=== PATIENT | male | born 1950 | race Caucasian/White ===

== ENCOUNTER → 2017-12-08 09:26 | Outpatient (CLI) | payer MEDICARE, OTHER, SELFPAY ==
[2017-12-08 13:02] LABS: AST(SGOT) 21 U/L (15-37); Alanine Aminotransfer ALT/SGPT 39 U/L (16-61); Albumin, Serum 3.7 g/dL (3.2-5.0); Alkaline Phosphatase 55 U/L (45-117); Bilirubin, Direct 0.12 mg/dL (0.00-0.30); Cholesterol 126 mg/dL (200); Globulin 3.6 g/dL (2.2-4.2); High Density Lipoprotein 33 mg/dL; Protein, Total 7.3 g/dL (6.4-8.2); Triglycerides 125 mg/dL; Very Low Density Lipoprotein 25 mg/dL (5-40)
== END ==
PROVIDERS: Family Provider Family Medicine; PCP Family Medicine; Visit Provider Physician Assistant Medical
DX: E78.5 Hyperlipidemia, unspecified (principal); Z79.899 Other long term (current) drug therapy
CPT/HCPCS: 36415; 80061; 80076

== ENCOUNTER → 2018-06-17 08:28 | Outpatient (CLI) | payer MEDICARE, OTHER, SELFPAY ==
[2018-05-26 13:26] VITALS: BMI 30.4
[2018-06-17 10:33] LABS: AST(SGOT) 26 U/L (15-37); Alanine Aminotransfer ALT/SGPT 52 U/L (16-61); Albumin, Serum 3.9 g/dL (3.2-5.0); Alkaline Phosphatase 64 U/L (45-117); Bilirubin, Direct 0.15 mg/dL (0.00-0.30); Cholesterol 160 mg/dL (200); Globulin 3.7 g/dL (2.2-4.2); High Density Lipoprotein 36 mg/dL; Protein, Total 7.6 g/dL (6.4-8.2); Triglycerides 173 mg/dL; Very Low Density Lipoprotein 35 mg/dL (5-40)
== END ==
PROVIDERS: Physician Assistant Medical; Family Provider Family Medicine; PCP Family Medicine; Referring Provider Internal Medicine Cardiovascular Disease; Visit Provider Internal Medicine Cardiovascular Disease
DX: E78.5 Hyperlipidemia, unspecified (principal)
CPT/HCPCS: 36415; 80061; 80076

== ENCOUNTER → 2019-04-25 09:12 | Outpatient (CLI) | payer MEDICARE, OTHER, SELFPAY ==
[2019-04-08 13:25] VITALS: BMI 31.0
[2019-04-25 10:52] LABS: AST(SGOT) 22 U/L (15-37); Alanine Aminotransfer ALT/SGPT 41 U/L (16-61); Albumin, Serum 3.9 g/dL (3.2-5.0); Alkaline Phosphatase 56 U/L (45-117); Bilirubin, Direct 0.15 mg/dL (0.00-0.30); Cholesterol 154 mg/dL (200); Globulin 3.5 g/dL (2.2-4.2); High Density Lipoprotein 38 mg/dL; Protein, Total 7.4 g/dL (6.4-8.2); Triglycerides 178 mg/dL; Very Low Density Lipoprotein 36 mg/dL (5-40)
== END ==
PROVIDERS: Family Provider Family Medicine; PCP Family Medicine; Referring Provider Internal Medicine Cardiovascular Disease; Visit Provider Internal Medicine Cardiovascular Disease
DX: E78.00 Pure hypercholesterolemia, unspecified (principal); I25.10 Atherosclerotic heart disease of native coronary artery without angina pectoris; I10 Essential (primary) hypertension; E78.5 Hyperlipidemia, unspecified; I25.2 Old myocardial infarction; Z95.5 Presence of coronary angioplasty implant and graft; Z95.1 Presence of aortocoronary bypass graft
CPT/HCPCS: 36415; 80061; 80076

== ENCOUNTER → 2019-12-09 15:04 | Outpatient (CLI) | payer MEDICARE, OTHER, SELFPAY ==
[2019-04-08 13:25] VITALS: BMI 31.0
[2019-12-09 18:21] LABS: BUN 17 mg/dL (7-18); Creatinine, Serum 1.08 mg/dL (0.70-1.30); Glucose 95 mg/dL (74-106)
[2019-12-09 18:22] LABS: Anion Gap 4 (5-15); BUN/Creat Ratio 15.7 RATIO (10-20); Calcium,Total 9.1 mg/dL (8.5-10.1); Chloride 108 mmol/L (98-107); EST Glomerular Filtration Rate 72 mL/min (>60); Est Glom Filt Rate - Afr Amer 87 mL/min (>60); PSA,Total - Annual Screen 0.84 ng/mL (0.00-4.00); Potassium 4.2 mmol/L (3.5-5.1); Sodium Level 140 mmol/L (136-145)
== END ==
PROVIDERS: PCP Family Medicine; Referring Provider Family Medicine; Visit Provider Family Medicine
DX: Z00.00 Encounter for general adult medical examination without abnormal findings (principal); Z12.5 Encounter for screening for malignant neoplasm of prostate
CPT/HCPCS: 36415; 80048; 84153; G0103

== ENCOUNTER → 2020-04-12 08:42 | Outpatient (CLI) | payer MEDICARE, OTHER, SELFPAY ==
[2020-04-12 07:24] VITALS: BMI 31.4
[2020-04-12 09:59] LABS: AST(SGOT) 25 U/L (15-37); Alanine Aminotransfer ALT/SGPT 53 U/L (16-61); Albumin, Serum 3.9 g/dL (3.2-5.0); Alkaline Phosphatase 58 U/L (45-117); Cholesterol 159 mg/dL (200); Globulin 3.6 g/dL (2.2-4.2); High Density Lipoprotein 39 mg/dL; Protein, Total 7.5 g/dL (6.4-8.2); Triglycerides 256 mg/dL; Very Low Density Lipoprotein 51 mg/dL (5-40)
== END ==
PROVIDERS: PCP Family Medicine; Referring Provider Nurse Practitioner Family; Visit Provider Nurse Practitioner Family
DX: E78.00 Pure hypercholesterolemia, unspecified (principal); E78.5 Hyperlipidemia, unspecified
CPT/HCPCS: 36415; 80061; 80076

== ENCOUNTER → 2020-05-10 06:28 | Outpatient (CLI) | payer MEDICARE, OTHER, SELFPAY ==
[2020-04-12 07:24] VITALS: BMI 31.4
--- NOTE | 2020-05-10 06:29 | ECHODONC_ITS ---
Reason For Study: CAD/ASHD Procedure This was a 2D Doppler, Color Flow transthoracic echocardiogram. Myocardial strain analysis was performed in this exam to aid in the assessment of cardiac function. Exam performed in department. Left Ventricle Normal LV size. Left ventricular systolic function is normal. The estimated ejection fraction is 65 %. Stage 1 diastolic dysfunction. No regional wall motion abnormalities noted. Right Ventricle Normal RV size. Normal systolic function. Atria The left atrium is mildly enlarged. Normal right atrium. Mitral Valve Normal mitral valve. Mild (1+) eccentric mitral valve insufficiency. Tricuspid Valve Normal tricuspid valve. Mild (1+) tricuspid valve insufficiency. Pulmonary artery systolic pressure is 27 mmHg. Aortic Valve Trisinus/trileaflet aortic valve. Mild (1+) aortic valve insufficiency. Pulmonic Valve Normal pulmonic valve. Great Vessels Normal aortic root. The pulmonary artery is normal size. Normal inferior vena cava. Pericardium/Pleural No pericardial effusion. MMode/2D Measurements & Calculations LVIDd: 4.5 cm IVSd: 1.1 cm LVOT diam: 2.0 cm LVIDs: 3.6 cm LVPWd: 1.1 cm LVOT area: 3.0 cm2 RVDd: 3.1 cm FS: 20.2 % Ao root diam: 3.5 cm LAV(MOD-bp): 58.2 ml LA A4 area: 20.6 cm2 LAV(MOD-bp) Indexed: 25.7 ml/m2 LAV(MOD-sp2): 54.5 ml LAV(MOD-sp4): 59.7 ml LA dimension(2D): 4.2 cm RA A4 area: 14.3 cm2 Time Measurements MV dec time: 0.23 sec Doppler Measurements & Calculations MV E max jann: 40.0 cm/sec Lat Peak E' Jann: 13.3 cm/sec Med Peak E' Jann: 7.9 cm/sec MV A max jann: 50.2 cm/sec E/E' lat: 3.0 E/E' med: 5.1 MV E/A: 0.80 Ao V2 max: 166.2 cm/sec AI max jann: 467.1 cm/sec LV V1 max: 113.6 cm/sec Ao max P.0 mmHg AI max P.3 mmHg LV V1 max P.2 mmHg Ao V2 mean: 113.6 cm/sec AI dec slope: 210.0 cm/sec2 LV V1 mean P.0 mmHg Ao mean P.8 mmHg AI P1/2t: 651.6 msec LV V1 mean: 81.7 cm/sec Ao V2 VTI: 35.2 cm LV V1 VTI: 25.1 cm JESU(I,D): 2.1 cm2 JESU(V,D): 2.1 cm2 SV(LVOT): 75.5 ml PA V2 max: 84.0 cm/sec TR max jann: 240.6 cm/sec TR max P.2 mmHg Interpretation Summary Normal LV size. Left ventricular systolic function is normal. The estimated ejection fraction is 65 %. Stage 1 diastolic dysfunction. The global longitudinal strain is borderline abnormal. The global longitudinal strain = -15.2% (abnormal). Ordering Physician: Eddi Sierra Referring Physician: Edwar Villareal Performed By: Jo-Ann Hinton RDCS, RVT
--- NOTE | 2020-05-10 08:55 | STRESSREP ---
Stress Test Report Exercise myocardial perfusion stress test. 69-year-old man with a history of previous coronary artery bypass surgery. Resting EKG demonstrates normal sinus rhythm with a rate of 60 bpm normal intervals are noted resting blood pressure is 122/70 mmHg. The patient exercised according to the regular Miguel protocol for a total duration of 9 minutes. The maximum heart rate attained was 153 bpm which was 101% of max impacted heart rate the maximum workload was 10.1 metabolic equivalents. The patient maintained sinus rhythm throughout the recording. At rest there were no ST or T wave changes noted suggest ischemia. At peak exercise there was approximately 1.2 mm of horizontal to upsloping ST depression noted in leads III and aVF and less than 1 mm in lead V6. In the post recovery. The changes reverted to upright almost immediately. The resting blood pressure was 122/70 with a final blood pressure of 130/76 mmHg with a peak blood pressure 172/78 mmHg. The test was terminated due to target heart rate being achieved no angina was noted. Myocardial perfusion protocol. 15.0 mCi of technetium 99m sestamibi was injected at rest. The patient exercised according to regular Miguel protocol for 9 minutes at peak exercise 45.0 mCi of technetium 99m sestamibi was injected stress images were obtained stress and rest images were reconstructed and compared in the short axis vertical long horizontal long axis. Gated images were also obtained. Perfusion SPECT analysis: Review of the images demonstrate normal uptake of tracer noted in all areas of the myocardium the resting images similarly demonstrate normal uptake of tracer in all areas of the myocardium. No obvious reversibility is noted suggest ischemia no previous infarct is noted. Gated SPECT analysis: The gated ejection fraction is 62%. Conclusion: Normal exercise myocardial perfusion stress test with no obvious evidence of ischemia. Preserved ejection fraction.
== END ==
PROVIDERS: PCP Family Medicine; Referring Provider Internal Medicine Cardiovascular Disease; Visit Provider Internal Medicine Cardiovascular Disease
DX: I25.10 Atherosclerotic heart disease of native coronary artery without angina pectoris (principal); I25.2 Old myocardial infarction; I10 Essential (primary) hypertension; E78.5 Hyperlipidemia, unspecified; R20.0 Anesthesia of skin; R20.2 Paresthesia of skin; Z95.1 Presence of aortocoronary bypass graft; Z95.5 Presence of coronary angioplasty implant and graft
CPT/HCPCS: 78452; 93017; 93306; 93356; A9500; A4216

== ENCOUNTER → 2020-05-24 09:21 | Outpatient (CLI) | payer MEDICARE, OTHER, SELFPAY ==
[2020-04-12 07:24] VITALS: BMI 31.4
--- NOTE | 2020-05-24 09:21 | NM_ITS ---
CLINICAL: 69-year-old male with reported history of cardiomyopathy-clinical congestive heart failure. 99m Tc PYROPHOSPHATE CARDIAC AMYLOID EXAMINATION COMPARISON: None available FINDINGS: Following the intravenous administration of 21.2 mCi of 99m Tc pyrophosphate, anterior acquisitions of the thorax reveal: 1. There is mild radiopharmaceutical concentration defined within the context of the cardiac blood pool without clear delineation of the left ventricular myocardium. 2. The calculated myocardial to contralateral chest wall ratio is 1.24:1 (ABNORMAL: > 1.5:1). NM/PYP Spect & Ltd Cardiac Amylio IMPRESSION: 1. NEGATIVE EXAMINATION. There is no current scintigraphic evidence of cardiac amyloidosis. (Juan Daniel et al, J Nucl Cardiol 21: 175, 2014). Electronically Signed: August Gutierres DO at 15:18 EST Tel , Service support ,
== END ==
PROVIDERS: PCP Family Medicine; Referring Provider Internal Medicine Cardiovascular Disease; Visit Provider Internal Medicine Cardiovascular Disease
DX: R93.1 Abnormal findings on diagnostic imaging of heart and coronary circulation (principal); R20.0 Anesthesia of skin; R20.2 Paresthesia of skin; E78.5 Hyperlipidemia, unspecified; I25.10 Atherosclerotic heart disease of native coronary artery without angina pectoris; I25.2 Old myocardial infarction; I10 Essential (primary) hypertension; Z95.1 Presence of aortocoronary bypass graft; Z95.5 Presence of coronary angioplasty implant and graft
CPT/HCPCS: 78800; 78803; A9538

== ENCOUNTER 2020-09-13 16:30 | Outpatient (RCR) | payer MEDICARE, OTHER, SELFPAY ==
[2020-04-12 07:24] VITALS: BMI 31.4
[2020-09-13] MEDS: COVID-19 VACC, MRNA(PFIZER)/PF 30 MCG/0.3 ML SYRINGE IM (10:35)
[2020-10-04] MEDS: COVID-19 VACC, MRNA(PFIZER)/PF 30 MCG/0.3 ML SYRINGE IM (10:28)
== END 2020-09-13 23:59 ==
LOC: IMMUN 16:30
PROVIDERS: PCP Family Medicine; Visit Provider Family Medicine
DX: Z23 Encounter for immunization (principal)
CPT/HCPCS: 0001A; 0002A

== ENCOUNTER → 2020-11-05 09:03 | Outpatient (CLI) | payer MEDICARE, OTHER, SELFPAY ==
[2020-10-16 10:25] VITALS: BMI 32.3
[2020-11-05 10:36] LABS: AST(SGOT) 23 U/L (15-37); Alanine Aminotransfer ALT/SGPT 52 U/L (16-61); Albumin, Serum 3.9 g/dL (3.2-5.0); Alkaline Phosphatase 59 U/L (45-117); Bilirubin, Direct 0.12 mg/dL (0.00-0.30); Cholesterol 163 mg/dL (200); Globulin 3.6 g/dL (2.2-4.2); High Density Lipoprotein 36 mg/dL; Protein, Total 7.5 g/dL (6.4-8.2); Triglycerides 242 mg/dL; Very Low Density Lipoprotein 48 mg/dL (5-40)
== END ==
PROVIDERS: PCP Family Medicine; Referring Provider Nurse Practitioner Family; Visit Provider Nurse Practitioner Family
DX: E78.00 Pure hypercholesterolemia, unspecified (principal)
CPT/HCPCS: 36415; 80061; 80076

== ENCOUNTER 2021-10-02 11:52 | Outpatient (CLI) | payer MEDICARE, OTHER, SELFPAY ==
--- NOTE | 2021-10-02 11:55 | RAD_ITS ---
STUDY: CHEST SERIES--PA AND LATERAL VIEWS OF 1201 HOURS ON 10/02/2021 REASON FOR EXAM: 71-year-old male with acute cough that may represent an acute bronchitis. TECHNIQUE: A standard 2 view chest x-ray series was obtained per protocol. COMPARISON: 1214. FINDINGS: Normal osseous structures. Previous sternal thoracotomy. Surgical clips of the coronary artery bypass graft procedure. No cardiomegaly or heart failure. No pulmonary infiltrates, atelectasis, effusion, pulmonary mass lesions. No bronchial wall thickening. There is a nipple artifact suggested in the right lower lobe. No interval change since previous study of 06/19/2014. RAD/Chest PA and Lateral IMPRESSION: 1. No interval change since the previous study of 06/19/2014. 2. No pneumonia, pneumonitis or bronchitis. 3. Previous sternal thoracotomy and coronary artery bypass graft procedure. 4. No cardiomegaly or heart failure. 5. Normal osseous structures. Electronically Signed: Christiano Araiza MD at 17:42 EDT ,
== END 2021-10-02 23:59 | disposition home or self-care (01) ==
LOC: MTRAD 11:54
PROVIDERS: PCP Family Medicine; Referring Provider Family Medicine; Visit Provider Family Medicine
DX: J20.9 Acute bronchitis, unspecified (principal)
CPT/HCPCS: 71046

== ENCOUNTER → 2021-11-05 | Outpatient (CLI) | payer MEDICARE, OTHER, SELFPAY ==
[2021-11-05 10:49] LABS: AST(SGOT) 28 U/L (15-37); Alanine Aminotransfer ALT/SGPT 57 U/L (16-61); Albumin, Serum 3.8 g/dL (3.2-5.0); Alkaline Phosphatase 54 U/L (45-117); Bilirubin, Direct 0.19 mg/dL (0.00-0.30); Cholesterol 157 mg/dL (200); Globulin 3.6 g/dL (2.2-4.2); High Density Lipoprotein 44 mg/dL; Protein, Total 7.4 g/dL (6.4-8.2); Triglycerides 117 mg/dL; Very Low Density Lipoprotein 23 mg/dL (5-40)
== END | disposition home or self-care (01) ==
LOC: MTLAB 08:01
PROVIDERS: PCP Family Medicine; Referring Provider Internal Medicine Cardiovascular Disease; Visit Provider Internal Medicine Cardiovascular Disease
DX: E78.00 Pure hypercholesterolemia, unspecified (principal)
CPT/HCPCS: 36415; 80061; 80076

== ENCOUNTER → 2022-02-12 | Outpatient (CLI) | payer MEDICARE, OTHER, SELFPAY ==
[2022-02-12 10:15] LABS: Anion Gap 2 (5-15); BUN 17 mg/dL (7-18); BUN/Creat Ratio 14.9 RATIO (10-20); Calcium,Total 9.4 mg/dL (8.5-10.1); Chloride 107 mmol/L (98-107); Creatinine, Serum 1.14 mg/dL (0.70-1.30); EST Glomerular Filtration Rate 67 mL/min (>60); Est Glom Filt Rate - Afr Amer 81 mL/min (>60); Glucose 109 mg/dL (74-106); PSA,Total - Annual Screen 2.04 ng/mL (0.00-4.00); Potassium 4.4 mmol/L (3.5-5.1); Sodium Level 139 mmol/L (136-145)
== END | disposition home or self-care (01) ==
LOC: MFPLAB 08:28
PROVIDERS: PCP Family Medicine; Referring Provider Family Medicine; Visit Provider Family Medicine
DX: Z00.00 Encounter for general adult medical examination without abnormal findings (principal); Z12.5 Encounter for screening for malignant neoplasm of prostate
CPT/HCPCS: 36415; 80048; 84153; G0103

== ENCOUNTER → 2023-03-30 | Outpatient (CLI) | payer MEDICARE, OTHER, SELFPAY ==
[2023-03-30 10:16] LABS: Anion Gap 5 (5-15); BUN 22 mg/dL (7-18); BUN/Creat Ratio 20.8 RATIO (10-20); Calcium,Total 8.7 mg/dL (8.5-10.1); Chloride 108 mmol/L (98-107); Cholesterol 140 mg/dL (200); Creatinine, Serum 1.06 mg/dL (0.70-1.30); EST Glomerular Filtration Rate 73 mL/min (>60); Est Glom Filt Rate - Afr Amer 88 mL/min (>60); Glucose 125 mg/dL (74-106); High Density Lipoprotein 50 mg/dL; PSA,Total - Annual Screen 1.29 ng/mL (0.00-4.00); Sodium Level 140 mmol/L (136-145); Triglycerides 122 mg/dL; Very Low Density Lipoprotein 24 mg/dL (5-40)
== END | disposition home or self-care (01) ==
LOC: MFPLAB 08:36
PROVIDERS: PCP Family Medicine; Visit Provider Family Medicine
DX: Z00.00 Encounter for general adult medical examination without abnormal findings (principal); Z12.5 Encounter for screening for malignant neoplasm of prostate; E78.00 Pure hypercholesterolemia, unspecified
CPT/HCPCS: 36415; 80048; 80061; 84153; G0103

== ENCOUNTER → 2023-10-05 | Outpatient (CLI) | payer MEDICARE, OTHER, SELFPAY ==
[2023-10-05 11:13] LABS: Anion Gap 4 (5-15); BUN 16 mg/dL (7-18); Calcium,Total 9.2 mg/dL (8.5-10.1); Chloride 107 mmol/L (98-107); Cholesterol 140 mg/dL (200); Creatinine, Serum 1.23 mg/dL (0.70-1.30); EST Glomerular Filtration Rate 61 mL/min (>60); Est Glom Filt Rate - Afr Amer 74 mL/min (>60); Glucose 106 mg/dL (74-106); High Density Lipoprotein 39 mg/dL; Potassium 4.2 mmol/L (3.5-5.1); Sodium Level 140 mmol/L (136-145); Triglycerides 142 mg/dL; Very Low Density Lipoprotein 28 mg/dL (5-40)
[2023-10-05 12:14] LABS: Hemoglobin A1c 6.1 % (3.8-5.6)
== END | disposition home or self-care (01) ==
LOC: MFPLAB 08:34
PROVIDERS: PCP Family Medicine; Visit Provider Family Medicine
DX: E11.9 Type 2 diabetes mellitus without complications (principal)
CPT/HCPCS: 36415; 80048; 80061; 83036

== ENCOUNTER → 2024-04-08 | Outpatient (CLI) | payer MEDICARE, OTHER, SELFPAY ==
--- NOTE | 2024-04-08 14:23 | STRESSREP ---
Stress Test Report Exercise myocardial perfusion stress test. 73-year-old male with a history of coronary artery disease Stress protocol: Resting EKG demonstrates normal sinus rhythm with a rate of 65 bpm resting blood pressure is 138/82 mmHg. The patient exercised according to the regular Miguel protocol for a total duration of 9 minutes attaining a maximum heart rate of 157 bpm which was 106% of maximum predicted heart rate; the maximum workload was 10.1 metabolic equivalents. At rest there were no ST or T wave changes noted to suggest ischemia and at peak exercise upsloping ST changes only were noted which did not meet the criteria for ischemia. No clinical angina was noted the test was terminated due to the target heart rate being achieved/fatigue. The peak blood pressure was 198/90 mmHg. Rate-pressure product was 24,000. Myocardial perfusion protocol. 11.9 mCi of technetium 99m sestamibi was injected at rest. The patient exercised according to regular Miguel protocol for total duration of 9 minutes and at peak exercise 34.7 mCi of technetium 99m sestamibi was injected stress images were obtained stress and rest images were reconstructed in comparing the short axis vertical long and horizontal long axis. Gated images were also obtained. Perfusion SPECT analysis: Review of the stress images demonstrate normal uptake of tracer noted in all areas of the myocardium. The resting images similarly demonstrate normal uptake of tracer noted in all areas of the myocardium. No areas of reversibility are noted to suggest ischemia no previous infarct was noted. Gated SPECT analysis: The gated ejection fraction is 62%. Conclusion: Normal exercise myocardial perfusion stress test at a high workload Preserved ejection fraction.
== END | disposition home or self-care (01) ==
LOC: CVS 06:30
PROVIDERS: PCP Family Medicine; Referring Provider Nurse Practitioner Family; Visit Provider Nurse Practitioner Family
DX: Z01.810 Encounter for preprocedural cardiovascular examination (principal); I25.10 Atherosclerotic heart disease of native coronary artery without angina pectoris; I25.2 Old myocardial infarction; I10 Essential (primary) hypertension; E78.00 Pure hypercholesterolemia, unspecified; Z95.1 Presence of aortocoronary bypass graft; Z95.5 Presence of coronary angioplasty implant and graft
CPT/HCPCS: 78452; 93017; A9500; A4216

== ENCOUNTER → 2024-05-04 | Outpatient (CLI) | payer MEDICARE, OTHER, SELFPAY ==
--- NOTE | 2024-05-04 07:29 | CT_ITS ---
STUDY: CT RIGHT SHOULDER WITHOUT CONTRAST REASON FOR EXAM: Male, 73 years old. SHOULDER PAIN RADIATION DOSAGE (If Supplied By Facility): CTDIvol = ( 27.09 ) mGy, DLP = ( 768.33 ) mGycm TECHNIQUE: The patient was scanned in a multi detector CT scanner. High resolution transaxial imaging was performed without the administration of intravenous contrast material. Sagittal and coronal images were reconstructed. Individualized dose optimization techniques were used for this CT. COMPARISON: Chest x-ray dated October 02, 2021 FINDINGS: There is severe osteoarthritis, with severe articular joint space narrowing, osteoarthritic spurring, articular remodeling, and with articular erosions. Mild cortical spurring of the glenoid rim. Normal scapula body. Normal humeral shaft. No demonstrated fracture or loose bodies. No aggressive abnormalities are present. Normal coracoid process. Normal visualized lateral clavicle. Normal acromioclavicular articulation. There is a Type II morphology (curved), with a neutral orientation. Normal visualized muscles and soft tissue structures. Tiny calcified granuloma seen in the lateral and superior segment of the right lower lobe on image 69/98 series 3. This does not requiring additional assessment. CT/Extremity Upper without Contra IMPRESSION: 1. Severe DJD of the shoulder joint Electronically Signed: Jaguar Kim MD at 12:06 EDT ,
== END | disposition home or self-care (01) ==
LOC: CT 07:28
PROVIDERS: PCP Family Medicine; Referring Provider Student in an Organized Health Care Education/Training Program; Visit Provider Student in an Organized Health Care Education/Training Program
DX: M19.111 Post-traumatic osteoarthritis, right shoulder (principal)
CPT/HCPCS: 73200

== ENCOUNTER 2024-05-30 15:09 | Observation (INO) | payer MEDICARE, OTHER, SELFPAY ==
--- NOTE | 2024-05-04 07:30 | EKG12_ITS ---
Test Reason : PRE OP Blood Pressure : / mmHG Vent. Rate : 056 BPM Atrial Rate : 056 BPM P-R Int : 158 ms QRS Dur : 090 ms QT Int : 430 ms P-R-T Axes : 058 040 058 degrees QTc Int : 414 ms Sinus bradycardia Otherwise normal ECG Confirmed by PURA FRIAS, JEAN PAUL ([id number]), assistant editor CHRISTIAN LUA ([id number]) on 05/04/2024 2:10:45 PM Referred By: Misael Rico Confirmed By:JEAN PAUL NEVES MD
[2024-05-04 08:19] LABS: Absolute Neutrophil Count 4.8 X10^3/uL (2.0-7.7); Basophil# 0.04 X10^3/uL; Basophil% 0.5 % (0-1); Eosinophil# 0.25 X10^3/uL; Eosinophils% 3.4 % (0-5); Hematocrit 43.6 % (40-54); Hemoglobin 14.6 g/dL (13.0-16.5); Lymphocyte % 21.9 % (19-41); Mean Corp Hgb Conc 33.5 g/dL (32-36); Mean Corpuscular Hgb 31.4 pg (27.0-32.0); Mean Corpuscular Volume 93.8 fL (80-94); Mean Platelet Vol. 9.3 fl (6.2-12.0); Monocyte% 8.2 % (0-10); NRBC Flagged by Analyzer 0 % (0-5); Neutrophil # 4.81 X10^3/uL (2.7-7.7); Neutrophil % 65.7 % (47-70); Platelet Count 182 K/mm3 (150-450); RBC Distribution Width CV 12.8 % (11.6-14.6); Red Blood Count 4.65 M/mm3 (4.6-6.2); White Blood Count 7.3 K/mm3 (4.4-11.0)
[2024-05-04 08:57] LABS: Albumin, Serum 3.7 g/dL (3.2-5.0); Anion Gap 1 (5-15); BUN 20 mg/dL (7-18); BUN/Creat Ratio 16.3 RATIO (10-20); Calcium,Total 9.1 mg/dL (8.5-10.1); Chloride 110 mmol/L (98-107); Creatinine, Serum 1.23 mg/dL (0.70-1.30); EST Glomerular Filtration Rate 61 mL/min (>60); Est Glom Filt Rate - Afr Amer 74 mL/min (>60); Glucose 108 mg/dL (74-106); Potassium 4.7 mmol/L (3.5-5.1); Sodium Level 142 mmol/L (136-145)
[2024-05-04 08:59] LABS: Magnesium 2.5 mg/dL (1.6-2.6)
[2024-05-30] VITALS (13 sets, daily range): BP systolic 106–159; BP diastolic 59–98; PULSE 63–92; RESP 16–18; TEMP 36.2–36.5; O2SAT 44–100; BMI 29.4
[2024-05-30] MEDS: Magnesium 1 GM over 15 mins IV (11:09)
[2024-05-30] MEDS: Lactated Ringers 1,000 ML 999 ML IV (11:09)
[2024-05-30] MEDS: Celecoxib 200 MG Capsule 400 MG PO (11:09)
[2024-05-30] MEDS: Gabapentin 600 MG Tablet PO (11:09)
[2024-05-30] MEDS: Acetaminophen 500 MG Tablet 1000 MG PO ×2 (11:09→20:18)
--- NOTE | 2024-05-30 11:10 | PCM.PRE.AN2 ---
ASA Classification* ASA Classification ASA Classification: 3 Assessment & Plan Anesthesia* Anesthesia Assessment Anesthesia Assessment: Discussed sedation and/or anesthesia options, risks, benefits, and alternatives with patient/parents/legal guardian/POA. Questions invited. The patient/parents/legal guardian/POA seems to understand and agrees to proceed with anesthesia plan. Reviewed the physical assessment, medical history, allergy history and patient home medications list prior to surgery/procedure/anesthetic and documented any changes. Performed airway and anesthesia risk assessments. Anesthesia Type Anesthesia Type: General and Block Anesthesia Focused Assessment* Airway Assessment Mouth opens: >3 cm Mallampati Score: II Focused Labs Anesthesia Preop lab: CBC WBC 7.3 K/mm3 (4.4-11.0) 05/04/24 07:58 RBC 4.65 M/mm3 (4.6-6.2) 05/04/24 07:58 Hgb 14.6 g/dL (13.0-16.5) 05/04/24 07:58 Hct 43.6 % (40-54) 05/04/24 07:58 Plt Count 182 K/mm3 (150-450) 05/04/24 07:58 CHEMISTRY Potassium 4.7 mmol/L (3.5-5.1) 05/04/24 07:58 Sodium 142 mmol/L (136-145) 05/04/24 07:58 Magnesium 2.5 mg/dL (1.6-2.6) 05/04/24 07:58 BUN 20 mg/dL (7-18) H 05/04/24 07:58 Creatinine 1.23 mg/dL (0.70-1.30) 05/04/24 07:58 Glucose 108 mg/dL (74-106) H 05/04/24 07:58 POC Glucose 117 mg/dL (70-110) H 06/30/13 06:53 TSH 1.55 uIU/mL (0.358-3.74) 12/07/15 09:40 COAG Pre-Assessment Diagnosis/Proposed Procedure Planned Operative Procedure(s): RIGHT REVERSE TOTAL SHOULDER ARTHROPLASTY Anesthesia History 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 When Was Last Pacemaker Check QUESTION #4 FULL TEXT: You/Your Family Experience fever (hyperthermia) with Anesthesia Last Oral Intake Last Oral intake: Last Oral Intake NPO since Meds taken in AM with sips of water? Meds patient instructed to take am of surgery PONV PONV - centerless grinding machine adjuster: PONV - centerless grinding machine adjuster Female No 05/02/24 09:57 HX of Motion Sickness No 05/02/24 09:57 HX of N/V After Surgery No 05/02/24 09:57 Non-Smoker Yes 05/02/24 09:57 Duration of Surgery greater Yes 05/02/24 09:57 than 60 minutes Number of Risk Factors 2 05/02/24 09:57 PONV Score Moderate Risk 05/02/24 09:57 Height & Weight Height & Weight: Anesthesia: Height & Weight Height 6 ft 12/14/23 15:08 Respiratory Assessment Respiratory Assessment - centerless grinding machine adjuster: Respiratory Tract Infection Hx - centerless grinding machine adjuster Hx Respiratory Tract Infection No 05/02/24 09:57 STOP Sleep Apnea STOP Sleep Apnea - centerless grinding machine adjuster: STOP Sleep Apnea - centerless grinding machine adjuster Hx Hypertension Yes: CONTROLLED WITH MED 05/02/24 09:57 Hx Sleep Apnea No 05/02/24 09:57 CPAP No 06/28/13 13:15 BIPAP No 06/28/13 10:56 Do you snore loudly (louder No 05/02/24 09:57 than talking or can be heard Do you often feel tired/ No 05/02/24 09:57 fatigued/ sleepy during daytime? Has anyone observed you stop No 05/02/24 09:57 breathing during sleep? STOP Results Negative 05/02/24 09:57 QUESTION #5 FULL TEXT : Do you snore loudly (louder than talking or can be heard through closed doors)? 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 Specify any problems Hx of Preganancy in last 3 N/A 05/02/24 09:57 Months Nurse Filling Out Transfusion DSCHRIBER 05/02/24 09:57 & Questions: Date: 05/02/24 05/02/24 09:57 Time: 09:58 05/02/24 09:57 Patient unable to answer at this time (ie. confused, unrespo /Reproduction History /Reproductive History - centerless grinding machine adjuster: /Reproductive Hx- centerless grinding machine adjuster Hx Now No 05/02/24 09:57 Gestational Age (in weeks): EDC: Hx Hx Para Hx Section SAB No 05/02/24 09:57 Active Medications Active Medications: Current Medications Generic Name Dose Route Start Last Admin Trade Name Freq PRN Reason Stop Dose Admin Acetaminophen 1,000 mg 05/30/24 12:45 Acetaminophen 500 Mg Tablet PO 05/30/24 12:46 X1 ONE Celecoxib 400 mg 05/30/24 12:45 Celecoxib 200 Mg Capsule PO 05/30/24 12:46 X1 ONE Dexamethasone Sodium Phosphate 10 mg 05/30/24 12:45 Dexamethasone 10 Mg/Ml Vial IV 05/30/24 12:46 X1 ONE Gabapentin 600 mg 05/30/24 12:45 Gabapentin 600 Mg Tablet PO 05/30/24 12:46 X1 ONE Lactated Ringer's 1,000 mls @ 999 mls/hr 05/30/24 12:45 IV 05/30/24 13:45 .Q1H1M TOM Tranexamic Acid 1,000 mg/ 110 mls @ 660 mls/hr 05/30/24 12:45 Sodium Chloride IV 05/30/24 12:54 X1 ONE Lactated Ringer's 1,000 mls @ 125 mls/hr 05/30/24 12:45 IV 05/30/24 20:44 .Q8H TOM Cefazolin Sodium 2 gm/ N/A 20 mls @ 400 mls/hr 05/30/24 12:45 IV 05/30/24 12:47 PREOP ONE Magnesium Sulfate 1 gm/ 102 mls @ 408 mls/hr 05/30/24 12:45 Dextrose IV 05/30/24 12:59 X1 ONE Insulin Human Lispro 1 - 6 unit 05/30/24 12:45 Insulin Lispro 100 Unit/Ml Insuln.Pen SC Q4H PRN PRN BG>/= 180, SEE PROTOCOL Protocol PFSH Medical History Wears glasses History of steroid therapy Arthritis History of hiatal hernia Gastric reflux Former smoker History of echocardiogram History of stress test Cardiology follow-up encounter Numbness and tingling in both hands 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) Essential (primary) hypertension NSTEMI (non-ST elevated myocardial infarction) Atherosclerotic heart disease of [place] coronary artery without angina pectoris HLD (hyperlipidemia) Home Medications ?Medication ?Instructions ?Recorded ?Last Taken ?Type metoprolol succinate 25 mg 25 mg PO DAILY 06/17/13 06/28/13 09:00 History tablet,extended release 24 hr 25 MG aspirin 81 mg chewable tablet 81 mg PO DAILY@0800 ##1 06/30/13 Unknown Rx diphenhydramine HCl 25 mg tablet 50 mg PO QHS Sleep 11/11/22 Unknown History (Benadryl Allergy) multivitamin 1 tab PO DAILY 11/11/22 Unknown History pyridoxine (vitamin B6) 100 mg 100 mg PO DAILY 11/11/22 Unknown History tablet nortriptyline 25 mg capsule 25 mg PO QHS 12/14/23 Unknown History pantoprazole 40 mg tablet,delayed 40 mg PO DAILY 12/14/23 Unknown History release tamsulosin 0.4 mg capsule 0.4 mg PO DAILY 12/14/23 Unknown History atorvastatin 10 mg tablet (Lipitor) 10 mg PO QHS 03/29/24 Unknown History Allergy/AdvReac Type Severity Reaction Status Date / Time simvastatin AdvReac myalgias Verified 05/02/24 09:53 Family History Father CAD (coronary artery disease) CABG Diabetes Mother CAD (coronary artery disease) Surgical History History of esophagogastroduodenoscopy (EGD) Hx of colonoscopy History of root canal procedure H/O coronary artery bypass surgery (12/09/11) History of right hip replacement Hx of shoulder surgery Hx of knee surgery History of coronary artery stent placement (10/2011) Social History Smoking Status: Former smoker how long ago did patient quit smokin alcohol intake: never substance use type: does not use caffeine: Yes Type: coffee Number of servings: 3 Review of Systems (Anesthesia) ROS Narrative System reviewed and no additional complaints, except as documented.
[2024-05-30 11:57] LABS: Bedside Glucose 99 mg/dL (74-106)
--- NOTE | 2024-05-30 12:45 | SHO_PTH ---
PATIENT: MISTI JAMES LOC: [facility] U#:[id number] AGE/SX: 73/M ROOM: [facility] RE05/30/[address]: Dr. Misael Rico DO : 1950 BED: 1 DIS: 05/31/2024 SPEC #: [id number] RECD: 05/31/24 11:06 STATUS: EBONY CED #: [id number] GOLD: 05/30/24 12:[address]: Misael Rico DEPT: SURGICAL PATHOLOGY RECD BY: Mckayla Yanes ENTERED: 05/31/24 12:24 SP TYPE: HUMERUS OTHR DR: Dr. Edwar Villareal MD Tissues: Humerus, NOS Procedures: Decalcification bone/plaque Surgery Specimen Level IV HEADER OPERATION: Right reserve total shoulder arthroplasty PRE-OP DIAGNOSIS: Rotator cuff insufficiency, glenohumeral joint arthritis, carpal tunnel syndrome TISSUE SUBMITTED: Right humeral head MICROSCOPIC DIAGNOSIS Bone and tissue right shoulder, total shoulder replacement/resection: Humeral head with degenerative osteoarthritic changes. HUNG. 06/03/2024 MICROSCOPIC DESCRIPTION Slides are reviewed. GROSS DESCRIPTION Received is one container labeled with the patient's name and designated bone and soft tissue. The specimen consists of a humeral head measuring 6.0 x 6.0 x 2.4 cm. The articular surface shows areas of erosion, eburnation and osteophyte formation. No soft tissue is identified. Powerhouse Engineer sections are submitted in two cassettes after decalcification. / HUNG: 05/31/2024 TC:5 CPT: 22340, 18418
[2024-05-30] MEDS: Cefazolin 2 GM in Syringe IV (12:53)
[2024-05-30] MEDS: TXA 1000mg in NS100 100ml (IVPB at Incision) 660 MG IV (13:05)
[2024-05-30] MEDS: dexAMETHasone 10 MG/ML Vial IV (13:05)
[2024-05-30] MEDS: Bupiv/Epi 0.25% 30 ML Vial (14:34)
--- NOTE | 2024-05-30 14:58 | PCM.POST.ANE ---
Anesthesia: Postop Eval I Current Vital Signs Temperature: 97.1 F Pulse Rate: 92 Blood Pressure: 146/75 Respiratory Rate: 16 Pulse Ox: 100 Oxygen Delivery Method: Nasal Cannula Oxygen Flow Rate (L/min): 4 Assessment Airway patent: Yes Spontaneous unlabored respirations: Yes Mental status: Asleep nausea: No Vomiting: No Anesthesia Complication: No Fluid Hydration Crystalloid volume administer (ml): 2,000 Total IV fluid infused: 2,000 Progress Note Anesthesia document: Postop Eval 1 completed: Yes
--- NOTE | 2024-05-30 15:20 | RAD_ITS ---
INDICATION: post op -- AP and Lateral X-Ray of operative shoulder in PACU EXAMINATION/TECHNIQUE: X-RAY - RIGHT XR Shoulder Min 2 Views 2 VIEWS COMPARISON: No relevant prior comparison study available FINDINGS: SOFT TISSUES: Gas in the soft tissues inferior to the acromion process and lateral aspect of the shoulder consistent with recent surgery. No radiopaque foreign body. BONES/JOINTS: Status post shoulder arthroplasty. The alignment is grossly unremarkable. Unremarkable echo clavicular joint. No sclerotic or destructive changes observed. RAD/Shoulder min 2 Views IMPRESSION: Status post right shoulder arthroplasty. Electronically Signed: Xavi Dixon MD at 15:30 EST ,
--- NOTE | 2024-05-30 15:23 | PCM.OPRPT ---
Operative Report (Standard) Operative Information Surgery/Procedure Performed: 1. Right reverse total shoulder arthroplasty 2. Right open carpal tunnel release Surgeon: Misael Rico Date of Procedure: 05/30/24 Procedure Start Time: 13:20 Procedure Stop Time: 14:44 Pre-Operative Diagnosis: 1. Right shoulder osteoarthritis 2. Right shoulder rotator cuff tear 3. Right carpal tunnel syndrome Post-Operative Diagnosis: 1. Right shoulder osteoarthritis 2. Right shoulder rotator cuff tear 3. Right carpal tunnel syndrome Select all DRAINS/GRAFTS/IMPLANTS that apply: None (See dictated operative report below) Type of Anesthesia: General/Regional Estimated Blood Loss: 150 cc Specimen collected: Yes Description of specimen(s) removed: Right humeral head Description of surgery: Surgeon: Misael Rico DO Nibbler Operator: Shalonda Brown PA-C Anesthesia: General endotracheal Anesthesiologist: Dr. Keita Complications: None apparent Drains: None Estimated blood loss: 150 cc Urinary output: None IV fluids: Per anesthesia record Specimens: None Surgical implants: Tornier Aequalis PerFORM+ reversed baseplate 25 mm diameter + 6 mm lateralization, standard glenosphere cobalt chrome 42 mm diameter, Tornier perform inlay stem size #3, + 0 mm retentive size number 3 42 mm diameter polyethylene insert, short central post and peripheral screws x4. Surgical indications: This is a 73-year-old male with persistent right shoulder pain. He did have worsening symptoms over the last several months. X-rays revealed severe right shoulder osteoarthritis. He had significant weakness with rotator cuff testing. I recommended a reverse shoulder arthroplasty. We obtained a preoperative CT scan for planning. Patient has findings of right carpal tunnel syndrome. He failed nonsurgical treatment. Surgical intervention was recommended within right open carpal tunnel release. The risks, benefits, alternatives the procedure was reviewed with the patient and he agreed to proceed. Risks included but were not limited to bleeding, infection, instability, loss of life or limb, risk of anesthesia, neurovascular injury, persistent pain, stiffness, prolonged immobilization, need for additional surgery, loosening of orthopedic hardware. He expressed understanding and wished to proceed with surgery. Surgical details: Patient arrived to [facility] morning of the procedure and was greeted by the same day surgery staff. Prior to his procedure, I greeted the patient in the preoperative holding area I identified the patient by name, record number, and date of . Informed consent was confirmed. The operative extremity was marked. All questions were answered to patient satisfaction. An interscalene block was administered prior to procedure by anesthesia staff for postoperative and intraoperative analgesia. At time of his procedure, patient was brought to the operative suite and positioned supine on a standard table with a beachchair attachment. General anesthesia was induced after all bony prominences were well-padded. Endotracheal tube was placed. After adequate anesthesia and securing the tube, we prepared the patient to be positioned in the beachchair position. A well-padded quality head was applied. The nonoperative extremity was placed in a well arm summers. He was then brought into the beachchair position after we confirmed an appropriate blood pressure. We then spun the bed 45 degrees. The operative extremity was then prepared. In the butterfly wing of the bed was removed and a well-padded torso strap was applied to secure the patient to the bed. The operative extremity was now free. We then prepped and draped the right upper extremity in normal, sterile orthopedic fashion. We then performed a timeout with all parties in attendance in agreement with the side, site, and operation be performed. 2 g Ancef was administered prior to incision by anesthesia staff, as well as 1 g TXA IV. No concerns were voiced and we elected to proceed. First, I turned my attention to the right hand. An Esmarch was utilized to exsanguinate the right hand and wrist and then secured with a hemostat to act as a forearm tourniquet. Esmarch was then unwrapped from the hand. After staying with the operative upper extremity with an Esmarch bandage. Tourniquet tourniquet remained compressed for approximately 5 minutes. A standard longitudinal was made in line with the fourth ray proximal to Perkins's cardinal line and distal to the wrist crease. Full-thickness skin flaps were developed sharply down to level palmar fascia. Heiss retractor was placed. Palmar fascia was split in line with the incision. Heiss retractor was taken deeper. Transverse carpal ligament was identified and split in line with the incision along its ulnar border. Proximal and distal releases were completed. Identification of perivascular fat was noted distally. No aberrancies in the median nerve were noted. The wound was copiously irrigated with normal saline solution. Tourniquet was removed. Hemostasis was achieved with unipolar cautery. Skin was reapproximated with interrupted horizontal mattress 4-0 nylon suture. A bulky dressing was applied. An impervious stockinette was then placed over the hand, forearm and elbow. I then marked a standard deltopectoral incision just lateral to the coracoid process in line with the long axis of the humerus. Skin was sharply incised with 10 blade scalpel. I then dissected bluntly through the subcutaneous layers and found the fat stripe between the deltoid and pectoralis major. The cephalic vein was then identified and protected. It was retracted laterally with the deltoid. I then bluntly dissected underneath the deltoid with a Mix elevator. Wandy retractor was placed. The upper 1 cm of the pectoralis major was released. I then identified the long head of the biceps tendon in the intertubercular groove. This was tenodesed in situ with #2 FiberWire. I then amputated the biceps proximal to the tenodesis site and followed the tendon to the supraglenoid tubercle where it was amputated. This identified the lesser and greater tuberosities. The supraspinatus was completely torn and retracted with an exposed greater tuberosity. I then performed a subscapularis peel while rotating the humerus externally. I tagged the subscapularis for possible repair later with a tagging suture. Humeral head was then dislocated anteriorly. Appropriate access to the humeral head was confirmed. I then subluxed the humeral head posteriorly with a Fukuda retractor placed around the posterior lip of the glenoid. Inferior capsule was tension. I was able to palpate the axillary nerve. Inferior capsule was then released to the 4 o'clock position of the glenoid face. 3 sided subscapularis release was performed with Bovie cautery. I then remove the Fukuda retractor and redislocated the shoulder anteriorly. I then made a anatomic neck cut of the cartilaginous surface of the humeral head. Sizing plate for a size # 3 stem was utilized to determine appropriate reaming size. A central pin was placed engaging the lateral cortex of the humerus. A size # 3 reamer was used to ream the humeral metaphysis and prepare for the inlay stem. A canal finding reamer was utilized prior to sequential broaching to a size # 3 short stem with excellent rotational and axial purchase in the humerus. I remove the broach handle left the size # [address] I then subluxed the humerus posterior to the glenoid. I then placed retractors around the posterior and anterior glenoid to expose the glenoid. Glenoid labrum was removed with Bovie cautery protecting the axillary nerve. We then used the custom guide from [employer] to position our centering pin, exiting approximately 25 mm from the joint surface along the anterior scapula. Guide was removed and pin was analyzed and compared to preoperative planning. It appeared to be in appropriate position. The Nautilus shaped reamer was then placed over top of the centering pin. I reamed a flat surface of the glenoid. We then removed the reamer and used the cannulated drill for the short central post. Post and baseplate was assembled on the back table. We then inserted the baseplate and central post the assembled baseplate to an appropriate depth with good press-fit purchase. A [place] was used to confirm depth. Cortical screws then were placed in the peripheral holes with good purchase. The baseplate had excellent purchase and the entire scapula would rotate with rotation of the baseplate. We then impacted the 42 mm glenosphere with a standard eccentricity and tightened the locking screw mechanism. We then removed retractors and turned our attention back to the humerus. I placed a standard +0 millimeters retentive polyethylene insert. I then reduced the shoulder. There was excellent range of motion and stability in all planes of motion. We selected this as our final size. We removed trials from the humerus after final dislocation. I copiously irrigated the canal. Broach was placed on hand and then impacted to an appropriate depth. Final + 0 mm retentive polyethylene insert was placed. Final reduction was then performed. The subscapularis was then identified with a tagging suture. Repair would have been likely under undue tension and likely failed. I elected to not perform a subscapularis repair. We then copiously irrigated the wound with sterile Betadine and normal saline solution. We reapproximated the interval with 0 Vicryl suture. Subcutaneous layers were reapproximated with 2 -0 Vicryl suture. Skin was finally running V-Loc 3-0 Monocryl suture and Dermabond. A sterile silver Mepilex dressing was applied. Patient was then placed in an ultra sling. Patient tolerated procedure well without complication. He was positioned back in the supine position extubated in the operative suite. He was transferred to the rsilver gate and subsequently to PACU in stable condition. Need for skilled assistant hall director: Shalonda Brown PA-C was critical to the outcome of the case. During the course of the procedure the physician assistant hall director played a vital role. Her intimate knowledge of my steps in the procedure aided in safe and expedient completion of the procedure. The PA played a vital role in positioning particularly in obtaining the appropriate positioning. The PA was also vital in the retraction of soft tissues during the exposure and protecting vital structures. The PA was also vital and protecting soft tissues during times of bony cuts. She also played a vital role in closure with my direct supervision. The PA was also important during reduction and dislocation of the joint and trials intraoperatively. Intraoperative medications: 2 g Ancef IV, 1 g TXA IV x2 Post Operative Plan: Patient will be placed observation overnight for medical monitoring and early convalescence given his extensive cardiac history. Weightbearing: Nonweightbearing right upper extremity, okay for pendulums. Range of motion of wrist elbow and hand as tolerated. Antibiotics: 2 g Ancef IV prior to incision, 24 hours IV antibiotics postoperatively DVT Prophylaxis: Aspirin enteric-coated 81 mg twice daily starting tomorrow Beckman: None Dressing: Maintain silver dressing x7 days. Okay to shower dressing on started on day 4 X-Rays: 2 weeks postop in the office Pain Medication: Oxycodone Rx upon discharge Follow-up: 2 weeks post-operatively with me in the office Surgical Findings: Full-thickness supraspinatus tendon tear, severe right shoulder osteoarthritis. Criminal Justice Instructor inner layer scrubber tender: Yes Nibbler Operator: Shalonda Brown Tasks completed by first helper: Opening & closing, Implanting device, Hemostasis: Electrocautery and Retracting Additional assistant hall director?: No Complications Complications: No Admit VTE Documentation VTE Present on Admission: No VTE Mechan Device Prophylaxis: SCD's VTE Pharm Prophylaxis ordered?: Yes
[2024-05-30] MEDS: Lactated Ringers 1,000 ML 125 ML IV (16:36)
[2024-05-30] MEDS: 0.9% Saline Lock 10 ML Syringe IV (16:37)
[2024-05-30] MEDS: Cefazolin 1 GM/50 ML BAG IV (20:18)
[2024-05-30] MEDS: Senna/Docusate Sodium 1 Tablet 2 TABLET PO (20:19)
[2024-05-30] MEDS: Atorvastatin Calcium 10 MG Tablet PO (20:19)
[2024-05-30] MEDS: Nortriptyline 25 MG Capsule PO (20:19)
[2024-05-30] MEDS: BENZOCAINE/MENTHOL 1 LOZENGE MUCOUS MEM (21:06)
[2024-05-31] MEDS: Cefazolin 1 GM/50 ML BAG IV (04:24)
[2024-05-31] MEDS: Acetaminophen 500 MG Tablet 1000 MG PO (04:25)
[2024-05-31 04:29] VITALS: BP 113/66; PULSE 68; RESP 16; TEMP 36.5; O2SAT 97
[2024-05-31 06:56] LABS: Hemoglobin 13.5 g/dL (13.0-16.5); Mean Corp Hgb Conc 34.6 g/dL (32-36); Mean Corpuscular Hgb 31.9 pg (27.0-32.0); Mean Corpuscular Volume 92.2 fL (80-94); Platelet Count 161 K/mm3 (150-450); RBC Distribution Width CV 12.8 % (11.6-14.6); Red Blood Count 4.23 M/mm3 (4.6-6.2); White Blood Count 15.4 K/mm3 (4.4-11.0)
[2024-05-31 07:20] LABS: Anion Gap 4 (5-15); BUN 17 mg/dL (7-18); BUN/Creat Ratio 16.3 RATIO (10-20); Calcium,Total 8.5 mg/dL (8.5-10.1); Chloride 109 mmol/L (98-107); Creatinine, Serum 1.04 mg/dL (0.70-1.30); EST Glomerular Filtration Rate 74 mL/min (>60); Est Glom Filt Rate - Afr Amer 90 mL/min (>60); Estimated Creatinine Clearance 76.89 ml/min; Glucose 141 mg/dL (74-106); Potassium 4.2 mmol/L (3.5-5.1); Sodium Level 140 mmol/L (136-145)
--- NOTE | 2024-05-31 07:25 | POSTOPAN2_ITS ---
Anesthesia Postop Eval I Sum Postop Eval Completion status Anesthesia document: Postop Eval 1 completed: Yes Anesthesia Postop Eval I Summary Anesthesia Postop Eval I Summary: Anesthesia Postop Eval I: Assessment Summary Airway patent Yes 05/30/24 15:01 GROUNDS MAINTENANCE SUPERVISOR.HBARR Spontaneous unlabored Yes 05/30/24 15:01 GROUNDS MAINTENANCE SUPERVISOR.HBARR respirations Mental status Asleep 05/30/24 15:01 GROUNDS MAINTENANCE SUPERVISOR.HBARR nausea No 05/30/24 15:01 GROUNDS MAINTENANCE SUPERVISOR.HBARR Vomiting No 05/30/24 15:01 GROUNDS MAINTENANCE SUPERVISOR.HBARR Anesthesia Postop Eval I: Fluid Summary Crystalloid volume administer 2,000 05/30/24 15:01 GROUNDS MAINTENANCE SUPERVISOR.HBARR (ml) Colloids volume administered ( ml) Blood Product volume administered (ml) Total IV fluid infused 2,000 05/30/24 15:01 GROUNDS MAINTENANCE SUPERVISOR.HBARR Anesthesia Postop Eval I: Summary Notes Anesthesia Complication No 05/30/24 15:01 GROUNDS MAINTENANCE SUPERVISOR.HBARR Anesthesia Complication Comment: Post-operative progress note Anesthesia: Postop Eval II Evaluation Mental status: Awake Pain Level: 0 nausea: No Vomiting: No
--- NOTE | 2024-05-31 07:25 | PCM.POSTANE2 ---
Anesthesia Postop Eval I Sum Postop Eval Completion status Anesthesia document: Postop Eval 1 completed: Yes Anesthesia Postop Eval I Summary Anesthesia Postop Eval I Summary: Anesthesia Postop Eval I: Assessment Summary Airway patent Yes 05/30/24 15:01 PRIVATE WEALTH ADVISOR.HBARR Spontaneous unlabored Yes 05/30/24 15:01 PRIVATE WEALTH ADVISOR.HBARR respirations Mental status Asleep 05/30/24 15:01 PRIVATE WEALTH ADVISOR.HBARR nausea No 05/30/24 15:01 PRIVATE WEALTH ADVISOR.HBARR Vomiting No 05/30/24 15:01 PRIVATE WEALTH ADVISOR.HBARR Anesthesia Postop Eval I: Fluid Summary Crystalloid volume administer 2,000 05/30/24 15:01 PRIVATE WEALTH ADVISOR.HBARR (ml) Colloids volume administered ( ml) Blood Product volume administered (ml) Total IV fluid infused 2,000 05/30/24 15:01 PRIVATE WEALTH ADVISOR.HBARR Anesthesia Postop Eval I: Summary Notes Anesthesia Complication No 05/30/24 15:01 PRIVATE WEALTH ADVISOR.HBARR Anesthesia Complication Comment: Post-operative progress note Anesthesia: Postop Eval II Evaluation Mental status: Awake Pain Level: 0 nausea: No Vomiting: No
[2024-05-31] MEDS: Aspirin E.C. 81 MG Tablet PO (07:54)
[2024-05-31] MEDS: Pantoprazole Sodium 40 MG Tablet PO (07:54)
[2024-05-31 07:55] VITALS: PULSE 68
[2024-05-31] MEDS: Senna/Docusate Sodium 1 Tablet 2 TABLET PO (07:55)
[2024-05-31] MEDS: Metoprolol(XL)Succ 25 MG Tablet PO (07:55)
[2024-05-31 08:04] VITALS: BP 119/68; PULSE 68; RESP 18; TEMP 36.6; O2SAT 97
--- NOTE | 2024-05-31 09:45 | CASEMGMT ---
NICK JUAREZ Assessment: Face to Face with pt for initial transition planning/care coordination assessment. RN LARRY introduced self and role at [facility], pt voices understanding and consents to assessment. Pt is A&O x4 and answers all questions appropriately at this time. Pt sitting up in chair in no distress. Care providers, pharmacy, and demographics verified/updated. Strata: 1 Admitting Dx: R reverse total Shoulder Arthro PCP: Lynn Specialists: Rigo, Hydrogen Treater; Román, supervisor garment manufacturing; Jacky, Orthopedic. Preferred Pharmacy: [facility] Insurance: [facility], [facility] Prescription Benefit: yes LNOK: , Merry. Living Arrangements: Pt lives with in a 1 story home with 2 steps to enter. ADLs: Pt I at baseline with ADLS and IADLs. Transportation: Pt drives self and denies concerns with transportation. DME: Walker, shower bench at home does not use. HHC/SNF: Denies SNF, previously used visiting nurses for HHC. Pt states no concerns with going home at time of dc. Pt states no further concerns/needs. CM to follow. Advised pt to ask CM if any further question/concerns/needs arise, voices understanding. Pt Goal: Home Plan: Home with OP therapy. Maria Luisa ROMERO CM
--- NOTE | 2024-05-31 11:36 | PCM.DC.SUM ---
Providers Date of Admission: 05/30/24 Date of Discharge: 05/31/24 Primary Care Physician: Dr. Edwar Villareal MD Reason For Visit: RIGHT REVERSE TOTAL SHOULDER ARTHRO Diagnosis Discharge Diagnosis (1) Status post reverse total arthroplasty of right shoulder: Status: Acute Code(s): Z96.611 - Presence of right artificial shoulder joint Plan: Status post right reverse total shoulder arthroplasty and right open carpal tunnel release 1. Will continue PT today. Nonweightbearing right upper extremity. Sling at all times. 2. plan for discharge this afternoon following PT 3. Patient will follow up for post op appointment as previously scheduled 2 weeks postoperatively 4. Patient has outpatient PT appointment after his 2-week postop appointment. This is previously scheduled. 5. WBC 15.4 acute reactive leukocytosis: secondary to pre operative decadron. no acute systemic signs of infection. will monitor, and likely self resolve. 6. H/H 13.5/39.0: No post operavtive anemia 7. DVT prophylaxis : Aspirin 81 mg twice daily x 2 weeks 8. Pain control: patient instructed to take tylenol 500mg 2 tablets TID. and oxycodone 1-2 tablets every 4-6 hours only as needed for pain control. 9. Patient also given a prescription of senna and Protonix. 10. ok to remove post op dressing. post op day 7. Carpal tunnel splint removed in 5 days. Medications at Discharge Home Medications metoprolol succinate 25 mg tablet,extended release 24 hr 25 mg PO DAILY 06/17/13 aspirin 81 mg chewable tablet 81 mg PO DAILY@0800 ##1 06/30/13 diphenhydramine HCl 25 mg tablet (Benadryl Allergy) 50 mg PO QHS Sleep 11/11/22 multivitamin 1 tab PO DAILY 11/11/22 pyridoxine (vitamin B6) 100 mg tablet 100 mg PO DAILY 11/11/22 nortriptyline 25 mg capsule 25 mg PO QHS 12/14/23 pantoprazole 40 mg tablet,delayed release 40 mg PO DAILY 12/14/23 tamsulosin 0.4 mg capsule 0.4 mg PO DAILY 12/14/23 atorvastatin 10 mg tablet (Lipitor) 10 mg PO QHS 03/29/24 acetaminophen 500 mg tablet 1,000 mg (2 x 500 mg) PO Q8 #180 tabs 05/31/24 aspirin 81 mg tablet,delayed release 81 mg PO BID 2 weeks #28 tabs 05/31/24 oxycodone 5 mg tablet 5 - 10 mg (1 - 2 x 5 mg) PO .q4-6 prn PRN Pain Score 4-10 7 days #30 tabs 05/31/24 sennosides 8.6 mg-docusate sodium 50 mg tablet (Stimulant Laxative Plus) 2 tab PO BID #14 tabs 05/31/24 Hospital Course Operations - (Right reverse total shoulder arthroplasty) Summary of Care Provided Hospital Course: Patient is s/p right reverse total shoulder arthroplasty with Dr. Rico 05/30/2024. Postop recovery without complications. Patient resting comfortably in bed. Rates pain 6/10. States taking Tylenol and oxycodone as needed and ice help to relieve pain. Patient has been up with therapy. Sling to right upper extremity at all times.. Afebrile, no chest pain, shortness of breath, negative calf pain/ erythema, and no other signs of DVT. Physical Exam Narrative Patient resting comfortably in bed No signs of acute distress Sling in place to right upper extremity Satting well on room air Limb is warm to touch, Sensation intact throughout entire upper extremity, Intact to radial, median, ulnar nerve distribution Radial pulses bounding pulses bounding. Dressing clear dry intact Calf nontender to palpation, no erythema, no edema. Negative Homans Weight / BMI Weight Weight: 98.43 kg Body Mass Index (BMI) 29.4 ABG / Lab / Microbiology Data 05/31/24 06:12 05/31/24 06:12 Laboratory: Laboratory Results - last 24 hr 05/30/24 11:07: POC Glucose 99 05/31/24 06:12: WBC 15.4 H, RBC 4.23 L, Hgb 13.5, Hct 39.0 L, MCV 92.2, MCH 31.9, MCHC 34.6, RDW Std Deviation 43.0, RDW Coeff of Yamila 12.8, Plt Count 161, MPV 10.0, Sodium 140, Potassium 4.2, Chloride 109 H, Carbon Dioxide 27.0, Anion Gap 4 L, BUN 17, Creatinine 1.04, Estim Creat Clear Calc 76.89, Est GFR (MDRD) Af Amer 90, Est GFR (MDRD) Non-Af 74, BUN/Creatinine Ratio 16.3, Glucose 141 H, Calcium 8.5 Microbiology: Microbiology 05/04/24 07:58 Swab (Method) Nasal Screen MRSA/MSSA - Final Radiography Diagnostic Testing: Radiology Impression Shoulder X-Ray 05/30/24 15:20 IMPRESSION: Status post right shoulder arthroplasty. Electronically Signed: Xavi Dixon MD at 15:30 EST Reading Location ID and State: [facility] / ID Tel , Service support , D/C Instructions Discharge Diet: No restrictions Discharge Activity: May Not Drive (X 2 weeks) and May Shower Weight Bearing Status: No weight bearing (Right upper extremity. Sling at all times.) Lifting Restrictions: Nonweightbearing right upper extremity Call your doctor if your incision/area has: Continuous Slow Oozing, Sudden Increased Bleeding, Increased Pain/ Swelling, Increased Redness, Foul Smelling Discharge and Swelling at the incision site Call your doctor if you observe: Fever of 101 or Higher, Numbness or Tingling, Inability to urinate, Inability to have a bowel movement, Shortness of breath, Dizziness, Chest pain, Calf discomfort and Uncontrolled pain Remove Dressing in: 1 week Cleanse incision/area with: Soap & Water and Keep Dressing Clean & Dry DC O2, CPAP, BIPAP Needs Additional Home O2 Discharge instructions: No DC home with Oxygen: No When: With post orthopedics in office 2 weeks postoperatively as previously scheduled Meaningful Use Info Meaningful Use Meaningful Use Diagnoses (Choose all that apply): None applicable Ischemic Stroke Statin Dosing Therapy Reference: STATIN DOSE THERAPY REFERENCE: * Patients > 75 years receive moderate or high dose statin therapy. * Patients 75 years or YOUNGER should receive HIGH intensity statin dose unless contraindicated. You will be required to document reason for non-treatment if statin daily dose does not meet guidelines. HIGH DOSE STATIN THERAPY DAILY Atorvastatin > than or = to 40 mg Rosuvastatin > than or = to 20 mg Amlodipine + Atorvastatin > than or = to 2.5/40 mg Ezetimibe + Simvastatin 10/80 mg Simvastatin 80mg Discharge Plan Admission Admit Date/Time: 05/30/24 15:09 Attending Provider: Misael Rico Primary Care Provider: Edwar Villareal Discharge Orders/Prescriptions Prescriptions: New acetaminophen 500 mg Tablet 1,000 mg PO Q8 Qty: 180 0RF aspirin 81 mg Tablet,Delayed Release (Dr/Ec) 81 mg PO BID 14 Days Qty: 28 0RF sennosides-docusate sodium [Stimulant Laxative Plus] 8.6-50 mg Tablet 2 tab PO BID Qty: 14 0RF oxycodone 5 mg Tablet 5 - 10 mg PO .q4-6 prn PRN (Reason: Pain Score 4-10) 7 Days Qty: 30 0RF Continued multivitamin Tablet 1 tab PO DAILY pyridoxine (vitamin B6) 100 mg tablet 100 mg PO DAILY diphenhydramine HCl [Benadryl Allergy] 25 mg tablet 50 mg PO QHS nortriptyline 25 mg capsule 25 mg PO QHS pantoprazole 40 mg tablet,delayed release (DR/EC) 40 mg PO DAILY tamsulosin 0.4 mg capsule 0.4 mg PO DAILY metoprolol succinate 25 MG tablet 25 mg PO DAILY atorvastatin [Lipitor] 10 mg tablet 10 mg PO QHS Held aspirin 81 MG tablet,chewable 81 mg PO DAILY@0800 Qty: 1 0RF Hold Instructions: Resume on 06/14/24. Rx Instructions: do not take with xarelto Referrals / Follow Up: Edwar Villareal MD [Primary Care Provider] - Disposition Disposition (needs filled in before D/C Order can be placed): Home, Self Care
[2024-05-31] MEDS: oxyCODONE 5 MG Tablet PO (12:46)
--- NOTE | 2024-05-31 12:59 | PHA.DC_ITS ---
Pharmacy [facility] Pharmacy Service has performed discharge medication reconciliation and counseling for this patient. The patient's discharge medication list was reviewed for discrepancies and discrepancies were resolved. The patient was counseled on the following discharge medications and changes in medications for homegoing were reviewed. The Reason for Use, instructions for use, and potential side effects were reviewed for all new medications. The patient's questions regarding all of their medications were answered. 1. Acetaminophen 1000 mg PO Q8 2. Aspirin 81 mg PO BID x 14 days 3. Oxycodone 5-10 mg Q4-6H PRN pain 4. Pearl/docusate 2 tablets PO BID The patient was able to verbally demonstrate an understanding of their discharge medications. The patient was counselled on new medications by pharmacy technician assistant Ranjith. Medications at Discharge Home Medications metoprolol succinate 25 mg tablet,extended release 24 hr 25 mg PO DAILY 06/17/13 aspirin 81 mg chewable tablet 81 mg PO DAILY@0800 ##1 06/30/13 diphenhydramine HCl 25 mg tablet (Benadryl Allergy) 50 mg PO QHS Sleep 11/11/22 multivitamin 1 tab PO DAILY 11/11/22 pyridoxine (vitamin B6) 100 mg tablet 100 mg PO DAILY 11/11/22 nortriptyline 25 mg capsule 25 mg PO QHS 12/14/23 pantoprazole 40 mg tablet,delayed release 40 mg PO DAILY 12/14/23 tamsulosin 0.4 mg capsule 0.4 mg PO DAILY 12/14/23 atorvastatin 10 mg tablet (Lipitor) 10 mg PO QHS 03/29/24 acetaminophen 500 mg tablet 1,000 mg (2 x 500 mg) PO Q8 #180 tabs 05/31/24 aspirin 81 mg tablet,delayed release 81 mg PO BID 2 weeks #28 tabs 05/31/24 oxycodone 5 mg tablet 5 - 10 mg (1 - 2 x 5 mg) PO .q4-6 prn PRN Pain Score 4-10 7 days #30 tabs 05/31/24 sennosides 8.6 mg-docusate sodium 50 mg tablet (Stimulant Laxative Plus) 2 tab PO BID #14 tabs 05/31/24
--- NOTE | 2024-05-31 15:24 | CASEMGMT ---
Social Work- Pt flagged for SDOH, however, pt discharged prior to assessment. RNCM performed full assessment on pt; no concerns noted. Bedside nurse noted no concerns reported to her. In the admission questions, no SDOH questions were answered positive; no concerns noted. FABRICIO Schmidt
== END 2024-05-31 13:25 | disposition home or self-care (01) ==
LOC: SDC 15:14 → MS3 15:14
PROVIDERS: Anesthesiology; Admitting Provider Student in an Organized Health Care Education/Training Program; PCP Family Medicine; Referring Provider Student in an Organized Health Care Education/Training Program; Visit Provider Student in an Organized Health Care Education/Training Program
PROC: (CPT 23472; principal; 2024-05-30 12:15)
PROC: (CPT 64721; 2024-05-30 12:15)
DX: M19.011 Primary osteoarthritis, right shoulder (principal); M75.121 Complete rotator cuff tear or rupture of right shoulder, not specified as traumatic; G56.01 Carpal tunnel syndrome, right upper limb; E78.00 Pure hypercholesterolemia, unspecified; I25.10 Atherosclerotic heart disease of native coronary artery without angina pectoris; K21.9 Gastro-esophageal reflux disease without esophagitis; Z79.899 Other long term (current) drug therapy; Z87.891 Personal history of nicotine dependence; Z79.82 Long term (current) use of aspirin
CPT/HCPCS: 23472; 64721; 01638; 64415; 36415; 73030; 80048; 82040; 82962; 83735; 85025; 85027; 87081; 88305; 88311; 93005; 94668; 96361; 96365; 96366; 97166; 99221; C1713; C1776; J7120; A4216; G0378; J2405; J3475

== ENCOUNTER → 2024-09-20 | Outpatient (CLI) | payer MEDICARE, OTHER, SELFPAY ==
[2024-09-20 10:50] LABS: Absolute Lymphocyte Count 1.48 X10^3/uL (0.83-4.51); Absolute Neutrophil Count 4.4 X10^3/uL (2.0-7.7); Basophil# 0.03 X10^3/uL; Basophil% 0.4 % (0-1); Eosinophil# 0.18 X10^3/uL; Eosinophils% 2.7 % (0-5); Hemoglobin 14.1 g/dL (13.0-16.5); Lymphocyte # 1.48 X10^3/ul (0.83-4.51); Lymphocyte % 22.2 % (19-41); Mean Corp Hgb Conc 35.3 g/dL (32-36); Mean Corpuscular Hgb 31.8 pg (27.0-32.0); Mean Corpuscular Volume 90.3 fL (80-94); Mean Platelet Vol. 9.7 fl (6.2-12.0); Monocyte# 0.52 X10^3/uL; Monocyte% 7.8 % (0-10); NRBC Flagged by Analyzer 0 % (0-5); Neutrophil # 4.43 X10^3/uL (2.7-7.7); Neutrophil % 66.5 % (47-70); Platelet Count 193 K/mm3 (150-450); RBC Distribution Width CV 12.9 % (11.6-14.6); RBC Distribution Width SD 42.5 fl (35.1-43.9); Red Blood Count 4.43 M/mm3 (4.6-6.2); White Blood Count 6.7 K/mm3 (4.4-11.0)
[2024-09-20 11:55] LABS: Cholesterol 114 mg/dL (<=200); High Density Lipoprotein 39 mg/dL; Low Density Lipoprotein Calc. 60 mg/dL; PSA,Total- Diagnostic 3.69 ng/mL (0.00-4.00); Triglycerides 77 mg/dL; Very Low Density Lipoprotein 15 mg/dL (5-40); cholesterol:hdl ratio screen 2.92
[2024-09-20 12:03] LABS: ALB/GLOB Ratio 1.6 RATIO (0.9-2.4); AST(SGOT) 31 U/L (<=37); Alanine Aminotransfer ALT/SGPT 46 U/L (<=46); Albumin, Serum 4.2 g/dL (3.4-4.8); Alkaline Phosphatase 54 U/L (40-129); Anion Gap 9 (5-15); BUN 19 mg/dL (4-19); BUN/Creat Ratio 19.7 RATIO (10-20); Calcium,Total 9.2 mg/dL (7.6-11.0); Carbon Dioxide 26.4 mmol/L (21.0-32.0); Chloride 105 mmol/L (98-108); Creatinine, Serum 0.95 mg/dL (0.70-1.20); EST Glomerular Filtration Rate 84 (>60); Globulin 2.6 g/dL (2.2-4.2); Glucose 100 mg/dL (70-99); Potassium 4.4 mmol/L (3.3-5.1); Protein, Total 6.7 g/dL (5.9-8.4); Sodium Level 140 mmol/L (133-145); Total Bilirubin 0.47 mg/dL (0.00-1.30)
[2024-09-29 10:08] LABS: Testosterone, % Free 2.85 % (1.50-4.20); Testosterone, Total 386 ng/dL (264-916)
== END | disposition home or self-care (01) ==
LOC: MTLAB 08:28
PROVIDERS: PCP Family Medicine; Referring Provider Family Medicine; Visit Provider Family Medicine
DX: I10 Essential (primary) hypertension (principal)
CPT/HCPCS: 36415; 80053; 80061; 84153; 84402; 84403; 85025

== ENCOUNTER 2024-12-06 14:00 | Outpatient (RCR) | payer MEDICARE, OTHER, SELFPAY ==
--- NOTE | 2024-11-24 15:45 | HP.OTEVAL ---
Patient's Visit Information Visit Information Visit Information: MISTI JAMES is a 74 year old M, referred to Occupational Therapy by Dr. Misael Rico, , with a diagnosis of CTS. trigger finger. 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 Pt state he has had residual issues of tingling of right thumb, IF and MF pt states left LF triggered until he had cortisone shot in Aug. left hand also has some CTS. pt states right hand continues to have pain with use and the more he does the more fingers hurt. left not as much pt states finger joints hurt with movement. pt states he is using compression gloves at night but no sig. change. pt would like to know what he can do to decrease his pain , tingling and use hand with daily tasks. Pain right hand: Current Pain Intensity: 8 Pain Intensity Range: 6 and 8 ROM ROM Comments: right hand 1.5 away from composite fist due to pain in PIPJ left hand pt demo with full tight composite fist Strength Program Developer: right 45# with pain left 55# Lateral Pinch: right 22# left 20# Tripod Pinch: right 14# left 14# Sensation Thumb: right 4.08left 2.83 Index: right 3.61 left 3.22 Middle: right 4.08left 2.83 Ring: right 3.61 left 2.83 Little: right 2.83 left 3.22 Quick DASH-Disab of Arm,Shoulder& Hand Quick DASH Score: 40.9075 Goals Goal:: pt will demo a increase in bilateral video library assistant strength by 10# for pt to perform ADls and IADLs by d.c Goal:: pt will demo a increase in full right composite fist with no report of pain by d.c to hold small and med. size objects for daily tasks. Goal:: pt will report a reduced pain level of 3/10 with digit ROM by d/c Goal:: pt will demo monofilament testing at 2.83 an all digits indication of decrease symptoms of numbness by d/c Goal:: Pt will demo understanding of joint protection and ergonomics when performing BADLs and IADLs by d/c Pt will demo understanding of adaptive Equipment use to decrease stress on joints to allow pt to perform BADSL and IADLS at JUDY level. Goal:: Pt will demo understanding of using supportive bracing 80% of workday/ADLS to decrease stress on tendon origin to allow healing and decrease pain by end of 2nd session. Rehabilitation General Assessment: pt demo with symptoms consistent with CTS and painful joints of bilateral hands. pt would benefit from skilled OT services 1-2x week for 4 weeks to assist pt in reaching maximal rehab potential. Today therapist ed. pt on median nerve glides, joint protection waldo. as well as ed. on conservative treatment. pt demo understanding and agree to POC. Rehabilitation Potential: Good Anticipated Interventions Anticipated Interventions: A/AAROM/PROM, Strengthening, Triggerpoint Release, Sensory Retraining, Modalities, Orthoses, Joint Protection/Energy Conservation, Ergonomic Education, Fine Motor Coord/Jonathon, Education re assistive Equipment, Education re Diagnosis and Home Program Visit Plan Frequency: 1-2x /Week Duration: 4 Weeks General Plan: median neve glides joint protection waldo. supportive bracing ed. on dx CTS TEXT: Thank you for the opportunity to evaluate your patient. For Medicare and Medicare HMO plans, please review the plan of care and approve it. It will need to be FAXED BACK to us at [phone] for Medicare purposes. Please let me know if there are questions or concerns regarding this plan of care. Physician Signature: Date:
--- NOTE | 2024-12-06 14:27 | HP.OTDCSUM_ITS ---
Discharge Summary D/C Summary: It has been my pleasure to treat MISTI JAMES under orders from Dr. Misael Rico, DO, for the diagnosis of CTS. trigger finger for a total of 3 visit(s). Please see the following information for a summary of their discharge status. Overall Improvement % Improvement: 50 Goals Patient Goals: Regain Mobility, Decrease Pain, Decrease Swelling/Stiffness, Improve Fine Motor Skills, Use Hand/Wrist/Arm Normally Again, Decrease Tingling/Numbness and Be More Independent in ADLS Goal:: pt will demo a increase in bilateral customs compliance analyst strength by 10# for pt to perform ADls and IADLs by d.c right goal met left increased by 5# Goal:: pt will demo a increase in full right composite fist with no report of pain by d.c to hold small and med. size objects for daily tasks. (goal met) Goal:: pt will report a reduced pain level of 3/10 with digit ROM by d/c ( goal met) Goal:: pt will demo monofilament testing at 2.83 an all digits indication of decrease symptoms of numbness by d/c (progressing) right IF 2.83 improvement right thumb 3.84 Goal:: Pt will demo understanding of joint protection and ergonomics when performing BADLs and IADLs by d/c (goal met) Pt will demo understanding of adaptive Equipment use to decrease stress on joints to allow pt to perform BADSL and IADLS at JUDY level. (goal met) Goal:: Pt will demo understanding of using supportive bracing 80% of workday/ADLS to decrease stress on tendon origin to allow healing and decrease pain by end of 2nd session. (goal met) Plan Plan: D/C pt with HEP D/C Information Discharge Comments: pt was seen for 3 sessions to ed. on CTS, trigger finger and joint protection waldo. pt demo with improvements and understanding of joint protection agrees with d/c d/c sentence: If there are questions or concerns regarding this patient's occupational therapy, please fell free to call me at [phone]. Thank you for the referral of this patient. Sincerely, Gricelda Naidu, OTR/L, CHT
== END 2024-12-06 15:27 | disposition home or self-care (01) ==
LOC: OT 14:00
PROVIDERS: PCP Family Medicine; Referring Provider Student in an Organized Health Care Education/Training Program; Visit Provider Student in an Organized Health Care Education/Training Program
DX: G56.01 Carpal tunnel syndrome, right upper limb (principal); M65.352 Trigger finger, left little finger
CPT/HCPCS: 97110; 97140; 97166; 97530

== ENCOUNTER → 2025-04-03 | Outpatient (CLI) | payer MEDICARE, OTHER, SELFPAY ==
[2025-04-03 12:06] LABS: Hematocrit 40.7 % (40-54); Hemoglobin 14.1 g/dL (13.0-16.5); Immature Granulocytes Count 0.160 X10^3/uL (0.0-0.0); Mean Corp Hgb Conc 34.6 g/dL (32-36); Mean Corpuscular Volume 91.5 fL (80-94); Mean Platelet Vol. 10.1 fl (6.2-12.0); NRBC Flagged by Analyzer 0 % (0-5); Platelet Count 182 K/mm3 (150-450); RBC Distribution Width CV 12.9 % (11.6-14.6); RBC Distribution Width SD 42.8 fl (35.1-43.9); Red Blood Count 4.45 M/mm3 (4.6-6.2); White Blood Count 6.8 K/mm3 (4.4-11.0)
[2025-04-03 13:10] LABS: AST(SGOT) 26 U/L (<=37); Alanine Aminotransfer ALT/SGPT 34 U/L (<=46); Albumin, Serum 4.2 g/dL (3.4-4.8); Alkaline Phosphatase 58 U/L (40-129); Anion Gap 10 (5-15); BUN 19 mg/dL (4-19); BUN/Creat Ratio 18.5 RATIO (10-20); Calcium,Total 9.1 mg/dL (7.6-11.0); Carbon Dioxide 25.5 mmol/L (21.0-32.0); Chloride 104 mmol/L (98-108); Cholesterol 154 mg/dL (<=200); Globulin 2.4 g/dL (2.2-4.2); Glucose 109 mg/dL (70-99); Low Density Lipoprotein Calc. 92 mg/dL; PSA,Total - Annual Screen 2.15 ng/mL (0.02-4.00); Potassium 4.5 mmol/L (3.3-5.1); Triglycerides 90 mg/dL; Very Low Density Lipoprotein 18 mg/dL (5-40); cholesterol:hdl ratio screen 3.48
== END | disposition home or self-care (01) ==
LOC: MFPLAB 09:17
PROVIDERS: PCP Family Medicine; Visit Provider Family Medicine
DX: I10 Essential (primary) hypertension (principal); E78.00 Pure hypercholesterolemia, unspecified; Z12.5 Encounter for screening for malignant neoplasm of prostate
CPT/HCPCS: 36415; 80053; 80061; 84153; 84403; 85025; G0103